=== PATIENT | male | born 1975 | race Caucasian/White ===

== ENCOUNTER 2017-04-13 10:55 | Emergency (ER) | payer OTHER ==
[~2017-04-13] VITALS: Ht 170.1 cm; Wt 59.0 kg
[~2017-04-13 10:55] MED LIST: FLEXERIL10 MG PO; MOTRIN800 MG PO; NAPROSYN500 MG PO; TYLENOL500 MG PO; VICODIN 5/500 505 MG PO
[2017-04-13] MEDS ORDERED: DEBROX15 ML OT (12:02)
[2017-04-13] MEDS ORDERED: AMOXICILLIN500 M2 PO (12:02)
== END 2017-04-13 13:51 | disposition home or self-care (01) ==
LOC: ED 10:55
DX: H66.92 Otitis media, unspecified, left ear (principal); I10 Essential (primary) hypertension; F17.200 Nicotine dependence, unspecified, uncomplicated; Z88.6 Allergy status to analgesic agent; Z79.899 Other long term (current) drug therapy

== ENCOUNTER 2017-04-28 18:56 | Emergency (ER) | payer OTHER ==
[~2017-04-28] VITALS: Ht 170.1 cm; Wt 63.5 kg
[~2017-04-28 18:56] MED LIST changes: +AMOXICILLIN500 M2 PO; +DEBROX15 ML OT
[2017-04-28] MEDS ORDERED: CORTISPORIN SUS10 ML OT (19:31)
[2017-04-28] MEDS ORDERED: ULTRAM50 MG PO (19:31)
[2017-04-28] MEDS ORDERED: CIPRO500 MG PO (19:31)
== END 2017-04-28 19:42 | disposition home or self-care (01) ==
LOC: ED 18:56
DX: H60.502 Unspecified acute noninfective otitis externa, left ear (principal); H65.192 Other acute nonsuppurative otitis media, left ear; F17.200 Nicotine dependence, unspecified, uncomplicated; I10 Essential (primary) hypertension; Z79.82 Long term (current) use of aspirin

== ENCOUNTER → 2018-03-31 | Outpatient (CLI) | payer OTHER ==
[~2018-03-31] MED LIST changes: +CIPRO500 MG PO; +CORTISPORIN SUS10 ML OT; +ULTRAM50 MG PO
[2018-03-31 19:48] LABS: BASO # 0.1 10*3/uL (0.0-0.1); BASO % 0.9 % (0.0-1.0); EOS # 0.3 10*3/uL (0.0-0.4); EOS % 3.4 % (1.0-4.0); HEMATOCRIT 40.6 % (42.0-52.0); HEMOGLOBIN 13.8 g/dl (14.0-18.0); LYMPH # 3.6 10*3/uL (1.3-4.4); LYMPH % 35.4 % (27.0-41.0); MEAN CELL VOLUME 93.1 fl (80.0-94.0); MEAN CORPUSCULAR HGB 31.7 pg (27.0-31.0); MONO # 0.8 10*3/uL (0.1-1.0); MONO % 7.5 % (3.0-9.0); NEUT # 5.3 10*3/uL (2.3-7.9); NEUT % 52.5 % (47.0-73.0); PLATELET COUNT AUTOMATED 275 10*3/uL (130-400); RED BLOOD COUNT 4.36 10*6/uL (4.50-5.90); RED CELL DISTRI WIDTH 13.1 % (0-14.5)
[2018-03-31 20:19] LABS: ALBUMIN 4.3 gm/dl (3.1-4.5); ALKALINE PHOSPHATASE 69 U/L (45-117); BUN 11 mg/dl (7-24); CHLORIDE 105 mmol/L (98-107); CHOLESTEROL 234 mg/dL (<200); HDL CHOLESTEROL 56 mg/dl (40-60); LDL CHOLESTEROL 158 mg/dL (9-159); POTASSIUM 3.7 mmol/L (3.5-5.1); SGOT/AST 21 IU/L (3-35); SGPT/ALT 23 U/L (12-78); SODIUM 139 mmol/L (136-145); TOTAL PROTEIN 8.2 gm/dL (6.4-8.2); TRIGLYCERIDES 98 mg/dl (<150); VLDL CHOLESTEROL 20 mg/dL (6-40)
== END | disposition home or self-care (01) ==
LOC: LAB 19:05
PROVIDERS: Nurse Practitioner Primary Care
DX: I10 Essential (primary) hypertension (principal)

== ENCOUNTER 2018-11-09 11:20 | Inpatient (IN) | payer OTHER ==
[~2018-11-09] VITALS: Ht 170.2 cm; Wt 58.1 kg
--- NOTE | ~2018-11-09 | EKG ---
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
--- NOTE | ~2018-11-09 | EKG ---
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
--- NOTE | ~2018-11-09 | EKG ---
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
--- NOTE | ~2018-11-09 | EKG ---
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
[2018-11-09 11:22] VITALS: BP 168/68
--- NOTE | 2018-11-09 11:29 | NUR ---
OUT OF BP MEDS FOR 2 MONTHS
[2018-11-09 11:35] VITALS: BP 164/84
[2018-11-09 11:35] LABS: HEMOGLOBIN 15.3 g/dl (14.0-18.0); MEAN CELL VOLUME 91.3 fl (80.0-94.0); MEAN PLATELET VOLUME 10.4 fl (9.6-12.3); PLATELET COUNT AUTOMATED 277 10*3/uL (130-400); RED BLOOD COUNT 4.93 10*6/uL (4.50-5.90); RED CELL DISTRI WIDTH 12.2 % (0-14.5); WHITE BLOOD COUNT 8.7 10*3/uL (4.8-10.8)
--- NOTE | 2018-11-09 11:36 | NUR ---
PT REPORTS 4-5 DAYS OF COUGH, SINUS DRAINAGE AND CONGESTION, BODY ACHES, PERIODS OF DIZZINESS, NAUSEA AND SOB WITH EXERTION. PT SMOKES. HE ADMITS THE PAIN IS REPRODUCIBLE WITH BREATHING, COUGH AND CHEST WALL PALPATION.
[2018-11-09 11:44] LABS: ACT PARTIAL THROMBO TIME 24.1 SECONDS (20.8-31.5)
[2018-11-09 11:54] LABS: ALBUMIN 3.8 gm/dl (3.1-4.5); ALKALINE PHOSPHATASE 71 U/L (45-117); BUN 14 mg/dl (7-24); CHLORIDE 99 mmol/L (98-107); CREATININE 0.88 mg/dL (0.70-1.30); POTASSIUM 3.1 mmol/L (3.5-5.1); SGOT/AST 15 IU/L (3-35); SGPT/ALT 20 U/L (12-78); SODIUM 134 mmol/L (136-145); TOTAL PROTEIN 7.5 gm/dL (6.4-8.2)
[2018-11-09 11:56] LABS: TROPONIN I < 0.015 ng/ml (<0.045)
[2018-11-09 12:10] LABS: ATYPICAL LYMPHS 3 % (0-0); BASOPHILS 1 % (0-1); PLATELET SUFFICIENCY NORMAL (NORMAL); TOTAL CELLS COUNTED 100 #CELLS
[2018-11-09 13:37] VITALS: BP 143/93
[2018-11-09 15:01] VITALS: BP 136/90
[2018-11-09 16:00] VITALS: BP 133/92
--- NOTE | 2018-11-09 16:40 | NUR ---
A 43, admitted to , under the services of HAIDER Farrell DO with a diagnosis of CHEST PAIN. Chief complaint is CP, COUGH. Patient arrived via stretcher from ER. Monitor applied. Initial assessment completed. Vital signs taken and recorded. HAIDER FARRELL DO notified of admission to the unit. Orders received. See assessment for past medical history, medications and allergies. Patient and/or family oriented to unit. [facility] visitation policy reviewed. Clothing/patient valuable form completed. KIRAN RODRÍGUEZ
--- NOTE | 2018-11-09 19:05 | NUR ---
Bedside report obtained from previous nurse.
[2018-11-09 20:00] VITALS: BP 147/94
--- NOTE | 2018-11-09 21:02 | NUR ---
Patient is awake, alert, and oriented x3 with easy and regular respers on room air. Assessment is complete with no s/s of distress noted at this time. Patient does c/o chest pain upon deep inspiration and says that PRN tylenol was effective. Bed is low, locked, and call light is within reach. See shift assessment.
--- NOTE | 2018-11-09 21:19 | NUR ---
2200 Medications administered at this time, patient tolerated well. Call light is within reach. PRN tylenol effective per patient.
[2018-11-10] VITALS: BP 113/75
[2018-11-10 06:36] LABS: BASO % 0.3 % (0.0-1.0); EOS % 0.1 % (1.0-4.0); HEMATOCRIT 44.1 % (42.0-52.0); HEMOGLOBIN 15.1 g/dl (14.0-18.0); LYMPH # 1.7 10*3/uL (1.3-4.4); LYMPH % 24.2 % (27.0-41.0); MEAN CELL VOLUME 92.6 fl (80.0-94.0); MEAN CORPUSCULAR HGB 31.7 pg (27.0-31.0); MEAN CORPUSCULAR HGB CONC 34.2 g/dl (33.0-37.0); MEAN PLATELET VOLUME 10.9 fl (9.6-12.3); MONO # 0.3 10*3/uL (0.1-1.0); NEUT # 4.9 10*3/uL (2.3-7.9); NEUT % 71.3 % (47.0-73.0); PLATELET COUNT AUTOMATED 270 10*3/uL (130-400); RED BLOOD COUNT 4.76 10*6/uL (4.50-5.90); RED CELL DISTRI WIDTH 12.2 % (0-14.5); WHITE BLOOD COUNT 6.8 10*3/uL (4.8-10.8)
--- NOTE | 2018-11-10 06:50 | NUR ---
Cardiac Rehab nurse called and informed this nurse that patient can have a light breakfast with absolutely no caffiene. Water and cereal provided. Call light is within reach.
[2018-11-10 07:06] LABS: BUN 13 mg/dl (7-24); CHLORIDE 105 mmol/L (98-107); CHOLESTEROL 147 mg/dL (<200); CREATININE 0.55 mg/dL (0.70-1.30); SODIUM 140 mmol/L (136-145); TRIGLYCERIDES 82 mg/dl (<150); VLDL CHOLESTEROL 16 mg/dL (6-40)
[2018-11-10 07:16] LABS: HDL CHOLESTEROL 28 mg/dl (40-60); LDL CHOLESTEROL 103 mg/dL (9-159); THYROID STIM HORMONE (HS) 0.249 uIU/ml (0.358-4.75)
[2018-11-10 08:00] VITALS: BP 146/83
--- NOTE | 2018-11-10 08:00 | NUR ---
PT. IS LYING ON BACK IN BED. PT. C/O CHEST PAIN UPON DEEP INSPIRATION A 5 ON THE PAIN SCALE. PT. IS NPO AT THIS TIME. CALL LIGHT IS WITHIN REACH. NICOLE BERGER.[facility]
--- NOTE | 2018-11-10 09:00 | NUR ---
Firestop/Containment Worker in to talk to patient. Patient states lives at home with family. There are few steps in the home. Physician: trenton martinez [facility]acy: [facility] [place] [facility]: none Patient's level of ADLs: INDEPENDENT Patient has working utilities: all working DME: none Follow-up physician's appointment after d/c: will be made by hospitalist nurse director upon Does patient want to access PORTAL?: no Discharge plan discussed with patient, patient lives at home, states he is independent in adls and ambulation, works, drives, patient states he will be going home when able and denies any home needs. AIDEN FLORES
[2018-11-10 11:30] VITALS: BP 128/77
--- NOTE | 2018-11-10 12:15 | NUR ---
INFORMED CONSENT OBTAINED FOR EXERCISE CARDIOLITE STRESS TEST WITH DR. MOELLER. RESTING EKG SINUS JAZIEL WITH A SUPINE HR OF 58 WITH BP OF 112/80 AND HR OF 71 WITH BP OF 102/76 IN STANDING POSITION. PT COMPLETED 11:00 OF A SOPHIE PROTOCOL WITH 2:00 OF STAGE IV AT 4.2 MPH AND 16% GRADE. REACHED A PEAK HR OF 159 WHICH IS 90% OF PREDICTED MAX WITH A PEAK BP OF 134/78. HAD NO CHEST PAIN OR ANY EKG CHANGES. TEST TERMINATED BECAUSE OF FATIGUE. HAS A HIGH EXERCISE TOLERANCE. LAST RECOVERY HR OF 94 WITH BP OF 118/72. AWAITING SCANNING IN STABLE CONDITION.
--- NOTE | 2018-11-10 13:30 | NUR ---
PT. HAS RETURNED FROM THE STRESS TEST AND IS NOW LYING IN BED ON HIS BACK WITH NO COMPLAINTS. REPORT GIVEN TO RN. NICOLE LITTLEJOHN. [facility].
[2018-11-10 16:00] VITALS: BP 98/77
--- NOTE | 2018-11-10 17:30 | NUR ---
HEPLOCK DISCONTINUED. DISCHARGE INSTRUCTIOSN REVIEWED. PT INFORMED OF FOLLOW UP APPT BEING MADE WITH MELISSA CHACKO. PT STATES HE WILL CANCEL IT BECAUSE HE WISHES TO NOW BE SEEN BY DR. GARCIA. LAB WORK AND VISIT SUMMARY GIVEN TO PATIENT PER REQUEST. SUPERVISOR MELT HOUSE DISCONINUED AND PATIENT AMBULATED OFF THE FLOOR WITH HIS SPOUSE. WHEELCHAIR REFUSED.
== END 2018-11-10 17:30 | disposition home or self-care (01) | DRG 206 ==
LOC: ED 11:20 → EDHOLD 14:10 → 4E 14:10
PROVIDERS: Emergency Medicine; Student in an Organized Health Care Education/Training Program; ADMIT Internal Medicine
DX: M94.0 Chondrocostal junction syndrome [Tietze] (principal); E87.1 Hypo-osmolality and hyponatremia; B34.9 Viral infection, unspecified; R79.82 Elevated C-reactive protein (CRP); E87.6 Hypokalemia; I10 Essential (primary) hypertension; K21.9 Gastro-esophageal reflux disease without esophagitis; F17.200 Nicotine dependence, unspecified, uncomplicated; Z71.6 Tobacco abuse counseling; Z88.4 Allergy status to anesthetic agent

== ENCOUNTER 2021-08-05 09:16 | Emergency (ER) | payer OTHER ==
[~2021-08-05] VITALS: Ht 170.1 cm; Wt 65.8 kg
[2021-08-05] MEDS ORDERED: METHOCARBAMOL500 M1 PO (15:40)
[2021-08-05] MEDS ORDERED: HYDROCODONE-AC1 EAC1 PO (15:40)
== END 2021-08-05 15:43 | disposition home or self-care (01) ==
LOC: ED 09:16
DX: S32.000A Wedge compression fracture of unspecified lumbar vertebra, initial encounter for closed fracture (principal); F17.200 Nicotine dependence, unspecified, uncomplicated; Z88.6 Allergy status to analgesic agent; Z79.899 Other long term (current) drug therapy; X50.0XXA Overexertion from strenuous movement or load, initial encounter; Y93.89 Activity, other specified; Y92.89 Other specified places as the place of occurrence of the external cause; Y99.8 Other external cause status

== ENCOUNTER → 2021-09-13 | Outpatient (CLI) | payer OTHER ==
[~2021-09-13] MED LIST changes: +HYDROCODONE-AC1 EAC1 PO; +METHOCARBAMOL500 M1 PO
== END | disposition home or self-care (01) ==
LOC: MRI 00:16
PROVIDERS: ATTEND Family Medicine
DX: S32.050A Wedge compression fracture of fifth lumbar vertebra, initial encounter for closed fracture (principal); S39.012A Strain of muscle, fascia and tendon of lower back, initial encounter; M51.26 Other intervertebral disc displacement, lumbar region; M51.27 Other intervertebral disc displacement, lumbosacral region; M46.06 Spinal enthesopathy, lumbar region; X58.XXXA Exposure to other specified factors, initial encounter; Y93.89 Activity, other specified; Y92.89 Other specified places as the place of occurrence of the external cause; Y99.8 Other external cause status

== ENCOUNTER → 2022-10-02 | Outpatient (CLI) | payer OTHER ==
[2022-10-02 09:37] LABS: BASO # 0.1 10*3/uL (0.0-0.1); BASO % 0.8 % (0.0-1.0); EOS # 0.5 10*3/uL (0.0-0.4); EOS % 3.9 % (1.0-4.0); HEMATOCRIT 45.1 % (42.0-52.0); LYMPH # 3.5 10*3/uL (1.3-4.4); LYMPH % 25.7 % (27.0-41.0); MEAN CELL VOLUME 92.2 fl (80.0-94.0); MEAN CORPUSCULAR HGB 31.3 pg (27.0-31.0); MEAN CORPUSCULAR HGB CONC 33.9 g/dl (33.0-37.0); MEAN PLATELET VOLUME 10.5 fl (9.6-12.3); MONO # 0.9 10*3/uL (0.1-1.0); MONO % 6.6 % (3.0-9.0); NEUT # 8.6 10*3/uL (2.3-7.9); NEUT % 62.7 % (47.0-73.0); PLATELET COUNT AUTOMATED 333 10*3/uL (130-400); RED BLOOD COUNT 4.89 10*6/uL (4.50-5.90); RETICULOCYTE % 1.58 % (0.50-2.50); WHITE BLOOD COUNT 13.8 10*3/uL (4.8-10.8)
[2022-10-02 09:58] LABS: BILIRUBIN Negative (Negative); BLOOD Negative (Negative); CLARITY Clear (Clear); COLOR Yellow (Yellow); GLUCOSE Negative (Negative); KETONE Trace (Negative); LEUKO ESTERASE Negative (Negative); NITRITE Negative (Negative)
[2022-10-02 10:03] LABS: ALKALINE PHOSPHATASE 67 U/L (46-116); BUN 11 mg/dl (9-23); CHLORIDE 104 mmol/L (98-107); CHOLESTEROL 237 mg/dL (<200); CREATININE 0.76 mg/dL (0.70-1.30); GAMMA GLUTAMYL TRANSPEPTIDASE 73 U/L (0-73); LDL CHOLESTEROL 167 mg/dL (9-159); SGPT/ALT 12 U/L (10-49); SODIUM 136 mmol/L (136-145); TOTAL PROTEIN 8.1 gm/dL (6.0-8.0); TRIGLYCERIDES 136 mg/dl (<150)
[2022-10-02 10:04] LABS: THYROID STIM HORMONE (HS) 1.256 uIU/ml (0.550-4.780)
[2022-10-02 10:33] LABS: BACTERIA 1+; EPITHELIAL CELLS 0-2; MUCOUS 1+; WBC 0-2 wbc/hpf (0-5)
[2022-10-02 10:41] LABS: VITAMIN D, 25-HYDROXY 51.9 ng/mL (30-100)
[2022-10-03 14:05] LABS: ANTI-DSDNA ANTIBODIES <1 IU/mL (0-9)
== END | disposition home or self-care (01) ==
LOC: LAB 09:08
PROVIDERS: ATTEND Family Medicine
DX: M25.511 Pain in right shoulder (principal); R79.89 Other specified abnormal findings of blood chemistry; R53.83 Other fatigue; E78.5 Hyperlipidemia, unspecified; E55.9 Vitamin D deficiency, unspecified

== ENCOUNTER → 2022-10-06 | Outpatient (CLI) | payer OTHER | END | disposition home or self-care (01) | LOC: RAD 01:57 | PROVIDERS: ATTEND Family Medicine | DX: M81.0 Age-related osteoporosis without current pathological fracture (principal) ==

== ENCOUNTER → 2022-10-09 | Outpatient (CLI) | payer OTHER | END | disposition home or self-care (01) | LOC: RAD 09:10 | PROVIDERS: ATTEND Family Medicine | DX: M54.50 Low back pain, unspecified (principal) ==

== ENCOUNTER → 2023-04-16 | Outpatient (CLI) | payer OTHER | END | disposition home or self-care (01) | LOC: RAD 08:42 | PROVIDERS: ATTEND Internal Medicine Rheumatology | DX: M13.0 Polyarthritis, unspecified (principal); R76.8 Other specified abnormal immunological findings in serum ==

== ENCOUNTER → 2023-05-28 | Outpatient (CLI) | payer OTHER | END | disposition home or self-care (01) | LOC: RAD 10:55 | PROVIDERS: ATTEND Family Medicine | DX: M43.12 Spondylolisthesis, cervical region (principal); M43.8X4 Other specified deforming dorsopathies, thoracic region; M47.812 Spondylosis without myelopathy or radiculopathy, cervical region; M48.04 Spinal stenosis, thoracic region ==

== ENCOUNTER → 2023-06-11 | Outpatient (CLI) | payer OTHER ==
[2023-06-11 08:48] LABS: ALKALINE PHOSPHATASE 58 U/L (46-116); BUN 16 mg/dl (9-23); CHOLESTEROL 202 mg/dL (<200); FREE T4 1.17 ng/dl (0.89-1.76); LDL CHOLESTEROL 131 mg/dL (9-159); SGPT/ALT 23 U/L (10-49); TOTAL PROTEIN 6.8 gm/dL (6.0-8.0); TRIGLYCERIDES 170 mg/dl (<150)
[2023-06-11 09:13] LABS: CHLORIDE 109 mmol/L (98-107)
[2023-06-11 09:31] LABS: VITAMIN D, 25-HYDROXY 37.7 ng/mL (30-100)
== END | disposition home or self-care (01) ==
LOC: LAB 07:42
PROVIDERS: ATTEND Internal Medicine
DX: M81.0 Age-related osteoporosis without current pathological fracture (principal); E55.9 Vitamin D deficiency, unspecified; E34.9 Endocrine disorder, unspecified; E78.5 Hyperlipidemia, unspecified; N40.0 Benign prostatic hyperplasia without lower urinary tract symptoms

== ENCOUNTER → 2023-07-20 | Outpatient (CLI) | payer OTHER | END | disposition home or self-care (01) | LOC: MRI 00:18 | PROVIDERS: ATTEND Family Medicine | DX: M47.812 Spondylosis without myelopathy or radiculopathy, cervical region (principal); M25.78 Osteophyte, vertebrae; M48.02 Spinal stenosis, cervical region; M50.30 Other cervical disc degeneration, unspecified cervical region ==

== ENCOUNTER → 2024-01-11 | Outpatient (CLI) | payer OTHER ==
[2024-01-11 08:58] LABS: BASO # 0.1 10*3/uL (0.0-0.1); BASO % 0.9 % (0.0-1.0); EOS # 0.2 10*3/uL (0.0-0.4); EOS % 2.2 % (1.0-4.0); HEMATOCRIT 42.5 % (42.0-52.0); LYMPH # 3.5 10*3/uL (1.3-4.4); LYMPH % 37.2 % (27.0-41.0); MEAN CELL VOLUME 90.6 fl (80.0-94.0); MEAN CORPUSCULAR HGB 29.6 pg (27.0-31.0); MEAN CORPUSCULAR HGB CONC 32.7 g/dl (33.0-37.0); MEAN PLATELET VOLUME 10.3 fl (9.6-12.3); MONO # 0.9 10*3/uL (0.1-1.0); MONO % 9.5 % (3.0-9.0); NEUT # 4.7 10*3/uL (2.3-7.9); PLATELET COUNT AUTOMATED 300 10*3/uL (130-400); RED BLOOD COUNT 4.69 10*6/uL (4.50-5.90); RED CELL DISTRI WIDTH 13.2 % (0-14.5); RETICULOCYTE % 2.19 % (0.50-2.50); WHITE BLOOD COUNT 9.4 10*3/uL (4.8-10.8)
[2024-01-11 09:23] LABS: ALKALINE PHOSPHATASE 61 U/L (46-116); BUN 17 mg/dl (9-23); CHLORIDE 105 mmol/L (98-107); CHOLESTEROL 188 mg/dL (<200); LDL CHOLESTEROL 110 mg/dL (9-159); POTASSIUM 4.3 mmol/L (3.4-5.1); SGPT/ALT 37 U/L (5-49); TOTAL PROTEIN 7.5 gm/dL (6.0-8.0); TRIGLYCERIDES 210 mg/dl (<150)
[2024-01-11 09:29] LABS: VITAMIN D, 25-HYDROXY 53.2 ng/mL (30-100)
== END ==
LOC: LAB 08:38
PROVIDERS: ATTEND Internal Medicine
DX: M81.0 Age-related osteoporosis without current pathological fracture (principal); E78.5 Hyperlipidemia, unspecified; N40.0 Benign prostatic hyperplasia without lower urinary tract symptoms; D64.9 Anemia, unspecified

== ENCOUNTER → 2024-01-14 | Outpatient (CLI) | payer OTHER | END | disposition home or self-care (01) | LOC: LAB 16:41 | PROVIDERS: ATTEND Internal Medicine | DX: M81.0 Age-related osteoporosis without current pathological fracture (principal); N40.0 Benign prostatic hyperplasia without lower urinary tract symptoms; E78.5 Hyperlipidemia, unspecified; E55.9 Vitamin D deficiency, unspecified; D64.9 Anemia, unspecified ==

== ENCOUNTER → 2024-01-19 | Outpatient (CLI) | payer OTHER | END | disposition home or self-care (01) | LOC: MRI 01:32 | PROVIDERS: ATTEND Student in an Organized Health Care Education/Training Program | DX: S22.089A Unspecified fracture of T11-T12 vertebra, initial encounter for closed fracture (principal); M47.814 Spondylosis without myelopathy or radiculopathy, thoracic region; M81.0 Age-related osteoporosis without current pathological fracture; X58.XXXA Exposure to other specified factors, initial encounter; Y93.89 Activity, other specified; Y92.89 Other specified places as the place of occurrence of the external cause; Y99.8 Other external cause status ==

== ENCOUNTER → 2024-08-01 | Outpatient (CLI) | payer OTHER ==
[~2024-08-01] MED LIST changes: +GADOTERATE MEGLUMINE 10 MMOL/20 ML VIAL IV ONE
[2024-08-01 09:52] LABS: BASO # 0.1 10*3/uL (0.0-0.1); BASO % 0.7 % (0.0-1.0); EOS # 0.2 10*3/uL (0.0-0.4); EOS % 2.5 % (1.0-4.0); HEMATOCRIT 41.2 % (42.0-52.0); LYMPH # 3.2 10*3/uL (1.3-4.4); LYMPH % 34.2 % (27.0-41.0); MEAN CELL VOLUME 88.6 fl (80.0-94.0); MEAN CORPUSCULAR HGB 30.5 pg (27.0-31.0); MEAN CORPUSCULAR HGB CONC 34.5 g/dl (33.0-37.0); MEAN PLATELET VOLUME 10.3 fl (9.6-12.3); MONO # 0.8 10*3/uL (0.1-1.0); NEUT % 53.3 % (47.0-73.0); PLATELET COUNT AUTOMATED 290 10*3/uL (130-400); RED BLOOD COUNT 4.65 10*6/uL (4.50-5.90); RED CELL DISTRI WIDTH 13.5 % (0-14.5); RETICULOCYTE % 2.11 % (0.50-2.50); WHITE BLOOD COUNT 9.4 10*3/uL (4.8-10.8)
[2024-08-01 09:53] LABS: BILIRUBIN Negative (Negative); BLOOD Negative (Negative); CLARITY Clear (Clear); COLOR Yellow (Yellow); GLUCOSE Negative (Negative); KETONE Negative (Negative); LEUKO ESTERASE Negative (Negative); NITRITE Negative (Negative); PH 5.5 (4.5-8.0); SPECIFIC GRAVITY 1.025 (1.001-1.030); UROBILINOGEN 0.2 E.U./dl (0.0-1.0)
[2024-08-01 13:03] LABS: ALKALINE PHOSPHATASE 73 U/L (46-116); BUN 11 mg/dl (9-23); CHLORIDE 106 mmol/L (98-107); CHOLESTEROL 159 mg/dL (<200); GAMMA GLUTAMYL TRANSPEPTIDASE 43 U/L (0-73); LDL CHOLESTEROL 98 mg/dL (9-159); POTASSIUM 4.1 mmol/L (3.4-5.1); SGPT/ALT 23 U/L (5-49); THYROXINE (T4) TOTAL 7.9 ug/dl (4.5-10.9); TOTAL PROTEIN 7.4 gm/dL (6.0-8.0); TRIGLYCERIDES 130 mg/dl (<150)
[2024-08-01 13:24] LABS: BACTERIA TRACE; MUCOUS 1+
== END | disposition home or self-care (01) ==
LOC: MRI 02:18 → LAB 02:18 → MRI 08:00
PROVIDERS: ATTEND Family Medicine
DX: E78.5 Hyperlipidemia, unspecified (principal); R79.89 Other specified abnormal findings of blood chemistry; R53.83 Other fatigue; R56.9 Unspecified convulsions

== ENCOUNTER → 2024-10-11 | Outpatient (CLI) | payer OTHER ==
[~2024-10-11] MED LIST changes: -GADOTERATE MEGLUMINE 10 MMOL/20 ML VIAL IV ONE
[2024-10-11 08:54] LABS: ALKALINE PHOSPHATASE 68 U/L (46-116); BUN 16 mg/dl (9-23); CHLORIDE 107 mmol/L (98-107); CHOLESTEROL 193 mg/dL (<200); FREE T4 1.36 ng/dl (0.89-1.76); LDL CHOLESTEROL 129 mg/dL (9-159); POTASSIUM 3.9 mmol/L (3.4-5.1); SGPT/ALT 22 U/L (5-49); TOTAL PROTEIN 7.2 gm/dL (6.0-8.0); TRIGLYCERIDES 149 mg/dl (<150)
== END | disposition home or self-care (01) ==
LOC: LAB 07:42
PROVIDERS: ATTEND Internal Medicine
DX: M81.0 Age-related osteoporosis without current pathological fracture (principal); E55.9 Vitamin D deficiency, unspecified; E78.5 Hyperlipidemia, unspecified; E34.9 Endocrine disorder, unspecified; N40.0 Benign prostatic hyperplasia without lower urinary tract symptoms

== ENCOUNTER → 2024-10-14 | Outpatient (CLI) | payer OTHER | END | disposition home or self-care (01) | LOC: RAD 07:55 | PROVIDERS: ATTEND Family Medicine | DX: M81.0 Age-related osteoporosis without current pathological fracture (principal) ==

== ENCOUNTER → 2025-01-17 | Outpatient (CLI) | payer OTHER | END | disposition home or self-care (01) | LOC: RAD 09:43 | PROVIDERS: ATTEND Family Medicine | DX: S23.41XA Sprain of ribs, initial encounter (principal); R06.02 Shortness of breath; X58.XXXA Exposure to other specified factors, initial encounter; Y93.89 Activity, other specified; Y92.89 Other specified places as the place of occurrence of the external cause; Y99.8 Other external cause status ==

== ENCOUNTER → 2025-03-01 | Outpatient (CLI) | payer OTHER | END | disposition home or self-care (01) | LOC: RAD 07:43 | PROVIDERS: ATTEND Family Medicine | DX: S32.050A Wedge compression fracture of fifth lumbar vertebra, initial encounter for closed fracture (principal); M54.50 Low back pain, unspecified; X58.XXXA Exposure to other specified factors, initial encounter; Y93.89 Activity, other specified; Y92.89 Other specified places as the place of occurrence of the external cause; Y99.8 Other external cause status ==

== ENCOUNTER → 2025-03-01 | Outpatient (CLI) | payer OTHER ==
[2025-03-01 09:14] LABS: ALKALINE PHOSPHATASE 72 U/L (46-116); BUN 15 mg/dl (9-23); CHLORIDE 105 mmol/L (98-107); CHOLESTEROL 156 mg/dL (<200); LDL CHOLESTEROL 92 mg/dL (9-159); POTASSIUM 3.9 mmol/L (3.4-5.1); SGPT/ALT 24 U/L (5-49); TOTAL PROTEIN 7.4 gm/dL (6.0-8.0); TRIGLYCERIDES 119 mg/dl (<150)
== END | disposition home or self-care (01) ==
LOC: LAB 07:35
PROVIDERS: ATTEND Internal Medicine
DX: M81.0 Age-related osteoporosis without current pathological fracture (principal); E55.9 Vitamin D deficiency, unspecified; E78.5 Hyperlipidemia, unspecified; N40.0 Benign prostatic hyperplasia without lower urinary tract symptoms; D64.9 Anemia, unspecified

== ENCOUNTER → 2025-04-05 | Outpatient (CLI) | payer OTHER | END | disposition home or self-care (01) | LOC: MRI 12:53 | PROVIDERS: ATTEND Family Medicine | DX: S32.050A Wedge compression fracture of fifth lumbar vertebra, initial encounter for closed fracture (principal); S39.012A Strain of muscle, fascia and tendon of lower back, initial encounter; F45.41 Pain disorder exclusively related to psychological factors; X58.XXXA Exposure to other specified factors, initial encounter; Y93.89 Activity, other specified; Y92.89 Other specified places as the place of occurrence of the external cause; Y99.8 Other external cause status ==

== ENCOUNTER → 2025-08-23 | Outpatient (CLI) | payer OTHER ==
[2025-08-23 08:40] LABS: BILIRUBIN Negative (Negative); BLOOD Negative (Negative); CLARITY Clear (Clear); COLOR Yellow (Yellow); KETONE Negative (Negative); LEUKO ESTERASE Trace (Negative); NITRITE Negative (Negative); PH 5.5 (4.5-8.0); SPECIFIC GRAVITY 1.020 (1.001-1.030); UROBILINOGEN 1.0 E.U./dl (0.0-1.0)
[2025-08-23 08:41] LABS: BASO # 0.1 10*3/uL (0.0-0.1); BASO % 0.9 % (0.0-1.0); EOS # 0.3 10*3/uL (0.0-0.4); EOS % 3.0 % (1.0-4.0); MEAN CELL VOLUME 87.7 fl (80.0-94.0); MEAN CORPUSCULAR HGB 29.9 pg (27.0-31.0); MEAN PLATELET VOLUME 10.6 fl (9.6-12.3); MONO # 0.9 10*3/uL (0.1-1.0); MONO % 9.1 % (3.0-9.0); NEUT # 4.7 10*3/uL (2.3-7.9); NEUT % 50.0 % (47.0-73.0); NUCLEATED RED BLOOD CELL 0.0 % (0.0-0.0); NUCLEATED RED BLOOD CELL 0.0 10*3/uL (0.0-0.0); PLATELET COUNT AUTOMATED 301 10*3/uL (130-400); RED CELL DISTRI WIDTH 12.8 % (0-14.5); RETICULOCYTE % 1.59 % (0.50-2.50)
[2025-08-23 09:29] LABS: SGPT/ALT 16.0 U/L (5-49)
[2025-08-23 09:33] LABS: BUN 13 mg/dl (9-23); GAMMA GLUTAMYL TRANSFERASE 33 U/L (0-73); LDL CHOLESTEROL 107 mg/dL (9-159); SGPT/ALT 17 U/L (5-49); T3 UPTAKE 31.5 % (22.4-36.7); THYROXINE (T4) TOTAL 10.7 ug/dl (4.5-10.9)
[2025-08-23 09:35] LABS: VITAMIN D, 25-HYDROXY 86.3 ng/mL (30-100)
[2025-08-23 11:14] LABS: BACTERIA 1+
[2025-08-23 11:15] LABS: MUCOUS 3+
== END | disposition home or self-care (01) ==
LOC: LAB 08:08
PROVIDERS: Family Medicine; ATTEND Internal Medicine
DX: E55.9 Vitamin D deficiency, unspecified (principal); M81.0 Age-related osteoporosis without current pathological fracture; E78.5 Hyperlipidemia, unspecified; D64.9 Anemia, unspecified; N40.0 Benign prostatic hyperplasia without lower urinary tract symptoms